=== PATIENT | male | born 1990 | race Two or more races ===

== ENCOUNTER 2023-11-11 02:19 | Inpatient (IN) | payer OTHER ==
[~2023-11-11] VITALS: Ht 167.6 cm; Wt 86.2 kg
[2023-11-11] MEDS: DiphenhydrAMINE HCL 50 MG/ML VIAL IM ONE (02:42)
[2023-11-11] MEDS: LORazepam 2 MG/ML VIAL IM ONE (02:42)
[2023-11-11] MEDS: HALOPERIDOL LACTATE 5 MG/ML VIAL IM ONE (02:44)
[2023-11-11 03:16] LABS: COVID AG,FIA SOURCE NASAL SWAB
[2023-11-11 03:21] LABS: SARS-COV2 (COVID) ANTIGEN,FIA Negative (Negative)
[2023-11-11 03:29] LABS: MEAN CORPUSCULAR VOLUME 86 fL (80-100)
[2023-11-11 03:38] LABS: ANION GAP 9 mmol/L (8-16); BASOPHILS % (AUTO) 0.3 % (0.0-2.0); CALCIUM, TOTAL 8.9 mg/dL (8.8-10.5); CARBON DIOXIDE 28 mmol/L (22-29); CHLORIDE 103 mmol/L (98-107); CREATININE 1.26 mg/dL (0.60-1.30); EOSINOPHILS % (AUTO) 0.1 % (1.0-6.0); GLOMERULAR FILTR. RATE CALC > 60 mL/min (>60); GLUCOSE,RANDOM 122 mg/dL (70-110); HEMATOCRIT 47.4 % (41-53); HEMOGLOBIN 16.3 g/dL (13.5-17.5); LYMPHOCYTES # (AUTO) 1.2 K/uL (1.0-4.8); LYMPHOCYTES % (AUTO) 9.8 % (22.0-44.0); MEAN CORPUSCULAR HEMOGLOBIN 29.7 pg (26.0-34.0); MEAN CORPUSCULAR HGB CONC 34.3 G/dL (31.0-37.0); MONOCYTES % (AUTO) 7.6 % (2.0-9.0); NEUTROPHILS # (AUTO) 10.3 K/uL (1.8-7.7); NEUTROPHILS % (AUTO) 82.2 % (40.0-70.0); PLATELET COUNT (AUTO) 248 K/uL (150-450); RED BLOOD CELL COUNT(AUTO) 5.48 MIL/uL (4.50-5.90); RED CELL DISTRIBUTION WIDTH 13.6 % (11.5-14.5); SODIUM SERUM 140 mmol/L (136-145); UREA NITROGEN, BLOOD 22 mg/dL (7-18); WHITE BLOOD COUNT (AUTO) 12.6 K/uL (4.5-11.0)
[2023-11-11 03:39] LABS: POTASSIUM 2.5 mmol/L (3.5-5.1)
[2023-11-11] MEDS: POTASSIUM CHLORIDE 20 MEQ ER TABLET PO ONE (04:01)
[2023-11-11] MEDS: POTASSIUM CHL 10 MEQ/WATER 50 ML IV SCH (04:04)
[2023-11-11 04:19] LABS: ALCOHOL, BLOOD (SERUM) < 3 mg/dL (0-10)
[2023-11-11] MEDS ORDERED: ACETAMINOPHEN 325 MG TABLET PO PRN (05:30)
[2023-11-11] MEDS ORDERED: HYDROCODONE/ACETAMINOPHEN 5-325 MG TABLET PO PRN (05:30)
[2023-11-11] MEDS ORDERED: POTASSIUM CHLORIDE 40 MEQ in SODIUM CHLORIDE 0.9% 1,000 ML IV ONE (05:30)
[2023-11-11] MEDS ORDERED: BISACODYL 10 MG RECTAL RECTAL SUPPOSITORY PR PRN (05:30)
[2023-11-11] MEDS ORDERED: ONDANSETRON HCL 4 MG/2 ML VIAL IVP PRN (05:30)
[2023-11-11] MEDS ORDERED: ZOLPIDEM TARTRATE 5 MG TABLET PO PRN (05:30)
[2023-11-11] MEDS ORDERED: MORPHINE SULFATE 2 MG/ML SYRINGE IVP PRN (05:30)
[2023-11-11] MEDS: HEPARIN SODIUM,PORCINE 5,000 UNITS/ML VIAL SQ SCH (08:00)
[2023-11-11 08:08] LABS: PH,URINE DRUG SCREEN 6.5 (5.0-8.0)
[2023-11-11 08:12] LABS: ANION GAP 6 mmol/L (8-16); CALCIUM, TOTAL 8.7 mg/dL (8.8-10.5); CARBON DIOXIDE 27 mmol/L (22-29); CHLORIDE 105 mmol/L (98-107); CREATININE 0.97 mg/dL (0.60-1.30); GLOMERULAR FILTR. RATE CALC > 60 mL/min (>60); GLUCOSE,RANDOM 110 mg/dL (70-110); POTASSIUM 3.9 mmol/L (3.5-5.1); SODIUM SERUM 138 mmol/L (136-145); UREA NITROGEN, BLOOD 22 mg/dL (7-18)
[2023-11-11 08:15] LABS: ALCOHOL, URINE DRUG SCREEN NEGATIVE (NEGATIVE); AMPHET/METH SCREEN,URINE NEGATIVE (NEGATIVE); BARBITURATE SCREEN, URINE NEGATIVE (NEGATIVE); BENZODIAZEPINES SCREEN,URINE NEGATIVE (NEGATIVE); CANNABINOID SCREEN,URINE POSITIVE (NEGATIVE); COCAINE SCREEN,URINE NEGATIVE (NEGATIVE); METHADONE SCREEN, URINE NEGATIVE (NEGATIVE); OPIATE SCREEN,URINE NEGATIVE (NEGATIVE); PHENCYCLIDINE SCREEN,URINE NEGATIVE (NEGATIVE)
[2023-11-11] MEDS: DOCUSATE SODIUM 100 MG CAPSULE PO SCH (09:00)
[2023-11-11 09:18] VITALS: BP 161/121; PULSE 88; RESP 19; TEMP 98.5
[2023-11-11] MEDS: PANTOPRAZOLE SODIUM 40 MG DR TABLET PO SCH (09:38)
[2023-11-11 11:10] VITALS: BP 141/115; PULSE 89; RESP 19; TEMP 98.8
[2023-11-11] MEDS: CloNIDine HCL 0.1 MG TABLET PO PRN (13:54)
[2023-11-11] MEDS: AmLODIPine BESYLATE 5 MG TABLET PO SCH (13:55)
[2023-11-11 14:38] VITALS: BP 139/87; PULSE 95; RESP 19; TEMP 98.4
[2023-11-11 20:52] VITALS: BP 151/87; PULSE 93; RESP 18; TEMP 97.8
[2023-11-12] VITALS (7 sets, daily range): BP systolic 135–161; BP diastolic 79–114; PULSE 79–99; RESP 18–19; TEMP 97.7–98.6
[2023-11-12] MEDS: MAGNESIUM HYDROXIDE SUSPENSION 30 ML UDCUP PO PRN (16:27)
[2023-11-13 03:27] VITALS: BP 142/97; PULSE 81; RESP 18; TEMP 97.9
[2023-11-13 06:48] VITALS: BP 138/100; PULSE 75; RESP 18; TEMP 98
[2023-11-13 08:18] VITALS: BP 163/107; PULSE 102; RESP 18; TEMP 97.7
[2023-11-13 11:56] LABS: BASOPHILS % (AUTO) 0.6 % (0.0-2.0); EOSINOPHILS % (AUTO) 1.9 % (1.0-6.0); HEMATOCRIT 52.4 % (41-53); HEMOGLOBIN 17.9 g/dL (13.5-17.5); LYMPHOCYTES # (AUTO) 1.3 K/uL (1.0-4.8); LYMPHOCYTES % (AUTO) 12.1 % (22.0-44.0); MEAN CORPUSCULAR HEMOGLOBIN 29.6 pg (26.0-34.0); MEAN CORPUSCULAR HGB CONC 34.1 G/dL (31.0-37.0); MEAN CORPUSCULAR VOLUME 87 fL (80-100); MONOCYTES % (AUTO) 9.3 % (2.0-9.0); NEUTROPHILS % (AUTO) 76.1 % (40.0-70.0); PLATELET COUNT (AUTO) 260 K/uL (150-450); RED BLOOD CELL COUNT(AUTO) 6.03 MIL/uL (4.50-5.90); RED CELL DISTRIBUTION WIDTH 13.8 % (11.5-14.5); WHITE BLOOD COUNT (AUTO) 10.5 K/uL (4.5-11.0)
[2023-11-13 12:07] LABS: ANION GAP 13 mmol/L (8-16); CALCIUM, TOTAL 9.3 mg/dL (8.8-10.5); CARBON DIOXIDE 25 mmol/L (22-29); CHLORIDE 102 mmol/L (98-107); CREATININE 0.95 mg/dL (0.60-1.30); GLOMERULAR FILTR. RATE CALC > 60 mL/min (>60); GLUCOSE,RANDOM 98 mg/dL (70-110); POTASSIUM 3.8 mmol/L (3.5-5.1); SODIUM SERUM 140 mmol/L (136-145); UREA NITROGEN, BLOOD 12 mg/dL (7-18)
[2023-11-13] MEDS ORDERED: AMLO-258 PO (15:27)
[2023-11-13 16:41] VITALS: BP 142/101; PULSE 95; RESP 18; TEMP 98.3
== END 2023-11-13 17:40 | disposition home or self-care (01) | DRG 641 ==
LOC: EMS 02:21 → EDH 06:20 → 5S 09:08 → 4E 11-13 06:03
PROVIDERS: ADMIT Internal Medicine; ATTEND Internal Medicine
DX: E87.6 Hypokalemia (principal); F20.0 Paranoid schizophrenia; D72.829 Elevated white blood cell count, unspecified; F19.90 Other psychoactive substance use, unspecified, uncomplicated; I10 Essential (primary) hypertension; Z20.822 Contact with and (suspected) exposure to COVID-19; E66.9 Obesity, unspecified; F12.90 Cannabis use, unspecified, uncomplicated; Z68.30 Body mass index [BMI] 30.0-30.9, adult
CPT/HCPCS: 80048; 80307; 83735; 85025; 93005; 99291; G0480; J1200; J1630; J1644; J2060; J3480; J7030